=== PATIENT | female | born 1955 | race Asian ===

== ENCOUNTER 2022-07-26 03:50 | Emergency (ER) | payer BC ==
[~2022-07-26] VITALS: Ht 182.9 cm; Wt 99.8 kg
[~2022-07-26 03:50] MED LIST: AMBIEN5 MG PO; BACTRIM1 TAB PO; BYSTOLIC10 MG PO; CELEXA20 MG PO; CETI10TA PO; CRESTOR20 MG PO; CYCL10TA35 PO; DEXL60CA4 PO; HYDR10TA47A PO; INVOKANA100 MG PO; LANTUS100 MG/ML SC; METOCLOPRAM10 MG PO; PRILOSEC OTC20 MG PO; SIMV40TA57 PO; TRADJENTA5 M1 PO; TRILIPIX135 MG PO; [UNRECOGNIZED DRUG - CODE] PO
[2022-07-26 04:00] VITALS: TEMP 97.6
[2022-07-26 05:07] LABS: PLATELET COUNT 230 K/uL (152-353)
[2022-07-26 07:00] VITALS: BP 174/68
== END 2022-07-26 07:00 | disposition short-term general hospital (02) ==
LOC: ED 03:50
PROVIDERS: Family Medicine
DX: K92.2 Gastrointestinal hemorrhage, unspecified (principal); N17.9 Acute kidney failure, unspecified; S31.831A Laceration without foreign body of anus, initial encounter; X58.XXXA Exposure to other specified factors, initial encounter
CPT/HCPCS: 36415; 80053; 82272; 83605; 84484; 85027; 87040; 93005; 96361; 96365; 96375; 99284; J2175; J2405